=== PATIENT | male | born 1985 | race Caucasian/White ===

== ENCOUNTER 2017-01-28 19:11 | Emergency (ER) | payer BC ==
--- NOTE | 2017-01-28 19:36 | Emergency Department Record ---
History of Present Illness - General Chief complaint: Swelling of legs Stated complaint: RT ANKLE & KNEE SWELLED Time Seen by Provider: 01/28/17 19:35 Source: Patient Mode of Arrival: Ambulatory Limitations: No limitations - History of Present Illness Initial comments: The patient is here due to a 2 day hx of swelling to his ankles and knees. The R side is slightly worse than the L side. He denies any trauma, injury, calf or thigh pain, CP, SOB, [place] or fevers. The patient denies any hx of similar issues or problems. The patient also denies any AP, cough, or vomiting. MD Complaint: Extremity pain, Extremity swelling, Joint pain Onset/Timin -: Days(s) Location: Left, Right, Ankle, Knee History of Same: No Radiation: None Quality: Other Consistency: Other Improves with: Other Worsens with: Other Associated Symptoms: Denies other symptoms - Related Data Home Medications Medication Instructions Recorded Confirmed Last Taken Amlodipine Besylate [Norvasc] 10 mg PO DAILY 01/28/17 01/28/17 Unknown Hydrochlorothiazide [Hctz 25Mg] 25 mg PO DAILY 01/28/17 01/28/17 Unknown Metoprolol Succinate [Toprol Xl] 50 mg PO DAILY 01/28/17 01/28/17 Unknown Previous Rx's Medication Instructions Recorded Potassium Chloride [Klor-Con] 20 meq PO DAILY #10 tab.prt.sr 01/28/17 Prednisone [Prednisone 20Mg] 40 mg PO DAILY #8 tab 01/28/17 Allergies Allergy/AdvReac Type Severity Reaction Status Date / Time No Known Drug Allergies Allergy Verified 01/28/17 19:35 Travel Screening - Travel/Exposure Within Last 30 Days Have you traveled within the last 30 days?: No - Travel/Exposure Within Last Year Have you traveled outside the [place] in the last year?: No - Additonal Travel Details Have you been exposed to anyone with a communicable illness?: No Review of Systems Constitutional: Denies: Chills, Fever Eyes: Denies: Eye discharge ENT: Denies: Congestion Respiratory: Denies: Cough, Dyspnea Past Medical History - SOCIAL HISTORY Smoking Status: Never smoker Alcohol Use: Occassional Drug Use: None - RESPIRATORY Hx Respiratory Disorders: No - CARDIOVASCULAR Hx Cardio Disorders: No - NEURO Hx Neuro Disorders: No - GI Hx GI Disorders: No - Hx Genitourinary Disorders: No - ENDOCRINE Hx Endocrine Disorders: No - MUSCULOSKELETAL Hx Musculoskeletal Disorders: No - PSYCH Hx Psych Problems: No - HEMATOLOGY/ONCOLOGY Hx Hematology/Oncology Disorders: No Family Medical History Any Significant Family History?: Yes Family Hx Comment (NOT TO BE USED IN PLACE OF ITEMS BELOW): cancer Physical Exam - General General Appearance: Alert, Oriented x3, Cooperative, No acute distress - Head Head exam: Atraumatic, Normocephalic, Normal inspection - Eye Eye exam: Normal appearance, PERRL - Neck Neck exam: Normal inspection, Full ROM. negative: Tenderness - Respiratory Respiratory exam: Normal lung sounds bilaterally. negative: Respiratory distress - Cardiovascular Cardiovascular Exam: Regular rate, Normal rhythm, Normal heart sounds - GI/Abdominal GI/Abdominal exam: Soft, Normal bowel sounds. negative: Tenderness - Extremities Extremities exam: Full ROM, Joint swelling (There is very mild edema to the Knees and ankles R>L. There is no joint erythema, warmth or any significant tenderness.), Pedal edema (Trace mainly on the R.), Other (There is no thigh or calf tenderness or edema.). negative: Normal inspection, Calf tenderness Course Vital Signs 01/28/17 19:25 Temperature 98.6 F Pulse Rate [ 107 H Pulse Ox Probe] Respiratory 18 Rate Blood Pressure 183/121 [Left Arm] Pulse Ox 97 - Reevaluation(s) Reevaluation #1: The patient is doing very well at this time. He denies any pain or discomfort. I explained to him that his test results do not indicate a cause for the joint issues. I will place the patient on a short course or oral steroids and he will F/U with his PCP for recheck. 01/28/17 21:09 Medical Decision Making - Data Complexity MDM Data: Labs Ordered and/or Reviewed - Lab Data Result diagrams: 01/28/17 20:10 01/28/17 20:10 Disposition Disposition: Discharge Clinical Impression: Joint effusion of lower extremity Disposition: Home, Self-Care Condition: (1) Good Instructions: Leg Edema (ED) Additional Instructions: Please continue your regular medicines and take the potassium and Prednisone as directed. Please see your PCP for recheck in 3-5 days. Please return to the ER for any increased swelling, pain, fever. Prescriptions: Potassium Chloride [Klor-Con] 20 meq PO DAILY #10 tab.prt.sr Prednisone [Prednisone 20Mg] 40 mg PO DAILY #8 tab Forms: Patient Portal Access Time of Disposition: 21:13
[2017-01-28 20:27] LABS: BASO % 0.7 % (0-6); EOS % 1.5 % (0-6); HEMOGLOBIN 15.7 gm/dl (14.0-18.0); LYMPH % 11.1 % (16-45); MEAN CELL VOLUME 87.3 fl (81-97); MEAN CORPUSCULAR HEMOGLOBIN 31.2 pg (27-33); MEAN CORPUSCULAR HGB CONC 35.7 g/dl (32-36); MEAN PLATELET VOLUME 9.6 fl (7.4-10.4); MONO % 7.7 % (0-9); PLATELET COUNT 240 K/uL (130-400); RED BLOOD COUNT 5.04 M/uL (4.40-5.70); WHITE BLOOD COUNT W/O DIFF 7.6 K/uL (4.2-12.2)
[2017-01-28 20:28] LABS: URINE APPEARANCE CLEAR; URINE BILIRUBIN NEGATIVE (NEGATIVE); URINE BLOOD NEGATIVE (NEGATIVE); URINE COLOR YELLOW; URINE GLUCOSE (UA) NEGATIVE (NEGATIVE); URINE KETONE NEGATIVE (NEGATIVE); URINE LEUKOCYTE ESTERASE NEGATIVE (NEGATIVE); URINE NITRITE NEGATIVE (NEGATIVE); URINE PROTEIN NEGATIVE (NEGATIVE); URINE UROBILINOGEN 0.2 E.U./dL (0.20 - 1.00)
[2017-01-28 20:45] LABS: BLOOD UREA NITROGEN 10 mg/dL (9-20); C-REACTIVE PROTEIN 0.7 mg/dL (0.0-0.9); CREATININE 0.8 mg/dL (0.66-1.25); EST GLOMERULAR FILTRATION RATE > 60 ml/min; GLUCOSE,RANDOM 90 mg/dL (70-110)
[2017-01-28] MEDS ORDERED: POTASSIUM CHLORIDE 20 MEQ TABLET PO ONE (20:51)
[2017-01-28] MEDS ORDERED: PREDNISONE 20 MG TAB PO ONE (20:54)
[2017-01-28 21:06] LABS: ERYTHROCYTE SEDIMENTATION RATE 2 mm/hr (0-15)
== END 2017-01-28 21:22 | disposition home or self-care (01) ==
LOC: ER 19:11
DX: M25.461 Effusion, right knee (principal); M25.471 Effusion, right ankle
CPT/HCPCS: 99283; 99284; 84550; 85025; 85651; 86140; 80048; 81003; J7512

== ENCOUNTER 2018-03-18 14:28 | Emergency (ER) | payer BC ==
[2018-03-18] MEDS ORDERED: PROPARACAINE HCL OPTH 15ML BTL OPTH ONE (14:44)
--- NOTE | 2018-03-18 14:54 | Emergency Department Record ---
History of Present Illness - General Chief complaint: Eye Problem Stated complaint: LT EYE IRRATATION Time Seen by Provider: 03/18/18 14:44 Source: Patient Mode of Arrival: Ambulatory Limitations: No limitations - History of Present Illness Initial comments: The patient is here due to L eye irritation for one day. He was working under his car yesterday and felt like he got some rust in the L eye. The FB sensation then resolved and then later in the day he felt the eye become mildly irritated. This AM he noticed his L upper eyelid became mildly swollen. There is no blurred vision, FB sensation, eye pain or photophobia. chief complaint: Eye redness Onset/Timin -: Days(s) Onset Description: Sudden Location: Left eye Place: Home If Injury: Direct trauma, Other Eye Symptoms: Burning, Foreign body sensation, Itching, Pain, Redness Severity: Moderate Severity scale (1-10): 5 If Pain, Quality: Aching Consistency: Constant, Intermittent - Related Data Visual acuity (L) = 20/: 20 Visual acuity (R) = 20/: 20 Patient Tetanus UTD (within 5 yrs): Yes Home Medications Medication Instructions Recorded Confirmed Last Taken Losartan Potassium 50 mg PO DAILY 03/18/18 03/18/18 1 Day Ago ~03/17/18 Previous Rx's Medication Instructions Recorded Erythromycin Base [Erythromycin 1 apply AFFEYE QID #1 tube 03/18/18 OPTH Ointment] Allergies Allergy/AdvReac Type Severity Reaction Status Date / Time No Known Drug Allergies Allergy Verified 03/18/18 14:43 Travel Screening - Travel/Exposure Within Last 30 Days Have you traveled within the last 30 days?: No - Travel/Exposure Within Last Year Have you traveled outside the [place] in the last year?: No - Additonal Travel Details Have you been exposed to anyone with a communicable illness?: No - Travel Symptoms Symptom Screening: None Review of Systems Constitutional: Denies: Chills, Fever Eyes: Denies: Eye discharge ENT: Denies: Congestion Respiratory: Denies: Cough Past Medical History - SOCIAL HISTORY Smoking Status: Current some day smoker Alcohol Use: Occasional Drug Use Detail:: Marijuana - RESPIRATORY Hx Respiratory Disorders: No - CARDIOVASCULAR Hx Cardio Disorders: Yes Hx Hypertension: Yes - NEURO Hx Neuro Disorders: No - GI Hx GI Disorders: No - Hx Genitourinary Disorders: No - ENDOCRINE Hx Endocrine Disorders: No - MUSCULOSKELETAL Hx Musculoskeletal Disorders: No - PSYCH Hx Psych Problems: No - HEMATOLOGY/ONCOLOGY Hx Hematology/Oncology Disorders: No Family Medical History Any Significant Family History?: Yes Family Hx Comment (NOT TO BE USED IN PLACE OF ITEMS BELOW): cancer Physical Exam - General General Appearance: Alert, Oriented x3, Cooperative, No acute distress - Head Head exam: Atraumatic, Normocephalic, Normal inspection - Eye Eye exam: Normal appearance, PERRL, Conjunctival injection (Trace L eye.), EOMI , Other (There is no FB on Lid eversion and the cornea is clear on flourescein staining. The L upper eyelid is very mildly swollen. There was no FB visualized on Slit Lamp exam.). negative: Periorbital tenderness, Scleral icterus Course Vital Signs 03/18/18 14:35 Temperature 98.0 F Pulse Rate 67 Respiratory 16 Rate Blood Pressure 177/115 Pulse Ox 96 - Reevaluation(s) Reevaluation #1: I did explain to the patient that I do not see any FB on the cornea or any corneal injury. He is to use the Emycin ointment in his eye and see his verifying specialist if not better tomorrow. 03/18/18 14:58 Disposition Disposition: Discharge Clinical Impression: Eye injury, superficial Qualifiers: Encounter type: initial encounter Laterality: left Qualified Code(s): S05.8X2A - Other injuries of left eye and orbit, initial encounter Disposition: Home, Self-Care Condition: (2) Stable Instructions: Conjunctivitis (ED) Additional Instructions: Please use the Emycin eye ointment as directed and also use cool compresses on the L eye every hour while awake. Please see your eye doctor if not better tomorrow. Prescriptions: Erythromycin Base [Erythromycin OPTH Ointment] 1 apply AFFEYE QID #1 tube Forms: Patient Portal Access Time of Disposition: 15:02 Quality - Quality Measures Quality Measures: N/A - Blood Pressure Screening View Details: Yes Does Patient Have Any of the Following: Active Dx of HTN Blood Pressure Classification: Hypertensive Reading Systolic Measurement: 177 Diastolic Measurement: 115 Screening for High Blood Pressure: Patient Exclusion, Hx of HTN [G9744]
== END 2018-03-18 15:15 | disposition home or self-care (01) ==
LOC: ER 14:28
DX: S05.8X2A Other injuries of left eye and orbit, initial encounter (principal); I10 Essential (primary) hypertension; F17.210 Nicotine dependence, cigarettes, uncomplicated; Y92.009 Unspecified place in unspecified non-institutional (private) residence as the place of occurrence of the external cause
CPT/HCPCS: 99283

== ENCOUNTER 2019-02-18 20:53 | Emergency (ER) | payer BC ==
[2019-02-18] MEDS ORDERED: PROPARACAINE HCL OPTH 15ML BTL OPTH ONE ×2 (21:07)
[2019-02-18] MEDS ORDERED: OFLOXACIN 0.3% 5 ML OPTH SOLN OPTH ONE (21:07)
[2019-02-18] MEDS ORDERED: AZITHROMYCIN 500 MG TABLET PO ONE (21:23)
[2019-02-18] MEDS ORDERED: ERYTHROMYCIN OPTH OINT 3.5GM OPTH ONE (21:23)
--- NOTE | 2019-02-18 21:23 | Emergency Department Record ---
History of Present Illness - General Chief complaint: ENT Stated complaint: LT EYE IRRITATION,CHEST CONGESTION Time Seen by Provider: 02/18/19 21:06 Source: Patient Mode of Arrival: Ambulatory Limitations: No limitations - History of Present Illness Initial comments: 33 yo male presents with left eye irritation, drainage, and redness. The onset was today. His son had similar symptoms over the weekend that resolved. No vision changes. He does no wear glasses or contacts. No recent injury. 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 He has a productive cough with thick yellow green sputum as well. He has a remote injury of a chronic corneal abrasion that occasionally worsens if dry. chief complaint: Eye pain, Eye redness -: Days(s) (1) Onset Description: Gradual Location: Left eye Place: Home If Injury: None Eye Symptoms: Discharge, Redness Severity: Mild If Pain, Quality: Aching Consistency: Constant Context: Recent URI Associated Symptoms: Cough Treatments Prior to Arrival: None - Related Data Previous Rx's Medication Instructions Recorded Azithromycin [Zithromax] 250 mg PO DAILY #4 tablet 02/18/19 Allergies Allergy/AdvReac Type Severity Reaction Status Date / Time No Known Drug Allergies Allergy Verified 03/18/18 14:43 Review of Systems Constitutional: Denies: Chills, Fever, Malaise, Weakness Eyes: Reports: Eye discharge, Eye pain. Denies: Photophobia, Vision change ENT: Reports: Congestion Respiratory: Reports: Cough Cardiovascular: Denies: Chest pain, Syncope Endocrine: Denies: Fatigue Gastrointestinal: Denies: Abdominal pain, Diarrhea, Nausea, Vomiting Genitourinary: Denies: Dysuria, Frequency, Hematuria Musculoskeletal: Denies: Arthralgia, Back pain, Neck pain Skin: Denies: Bruising, Change in color, Rash Neurological: Denies: Headache Psychiatric: Denies: Anxiety Hematological/Lymphatic: Denies: Easy bleeding, Easy bruising Past Medical History - SOCIAL HISTORY Smoking Status: Current some day smoker Drug Use Detail:: Marijuana - RESPIRATORY Hx Respiratory Disorders: No - CARDIOVASCULAR Hx Cardio Disorders: Yes Hx Hypertension: Yes - NEURO Hx Neuro Disorders: No - GI Hx GI Disorders: No - Hx Genitourinary Disorders: No - ENDOCRINE Hx Endocrine Disorders: No - MUSCULOSKELETAL Hx Musculoskeletal Disorders: No - PSYCH Hx Psych Problems: No - HEMATOLOGY/ONCOLOGY Hx Hematology/Oncology Disorders: No Family Medical History Family Hx Comment (NOT TO BE USED IN PLACE OF ITEMS BELOW): cancer Physical Exam - General General Appearance: Alert, Oriented x3, Cooperative, No acute distress Limitations: No limitations - Head Head exam: Atraumatic - Eye Eye exam: PERRL, Conjunctival injection, EOMI. negative: Normal appearance, Nystagmus, Periorbital swelling, Periorbital tenderness Pupils: Normal accommodation, Other (No stain uptake, clear AC on slit lamp, no abrasions identified with staining and review with slit lamp, no corneal abnormalities). negative: Irregular, Unequal Visual acuity (L) = 20/: 20 - ENT ENT exam: Normal exam Ear exam: Normal external inspection Nasal Exam: Normal inspection Mouth exam: Normal external inspection Teeth exam: Normal inspection Throat exam: Normal inspection. negative: Tonsillar erythema, Tonsillomegaly, Tonsillar exudate - Neck Neck exam: Normal inspection - Respiratory Respiratory exam: Normal lung sounds bilaterally. negative: Respiratory distress, Rhonchi, Stridor, Wheezes - Cardiovascular Cardiovascular Exam: Regular rate, Normal rhythm, Normal heart sounds - Neurological Neurological exam: Alert, Normal gait, Oriented X3 - Psychiatric Psychiatric exam: Normal affect, Normal mood. negative: Agitated, Anxious - Skin Skin exam: Dry, Intact, Normal color, Warm Course Vital Signs 02/18/19 20:58 Temperature 98.9 F Pulse Rate [ 85 Pulse Ox Probe] Respiratory 20 Rate Blood Pressure 163/92 [Left Arm] Pulse Ox 97 - Reevaluation(s) Reevaluation #1: Slit lamp completed. No abnormal uptake, abrasions or lesions He was provided antibiotics He is to call his shroud line tier for close follow up this week if not quickly improving Disposition Disposition: Discharge Clinical Impression: Conjunctivitis, Bronchitis Disposition: Home, Self-Care Condition: (1) Good Instructions: Conjunctivitis (ED) Additional Instructions: Call your shroud line tier for the next available follow up appointment this week Return to the ER for a recheck if worse, any new concerns or questions Take the prescriptions provided as directed Use 2 drops every 4 hours in your left eye Use them one day beyond when the symptoms go away Review this ER visit and the tests performed with your family doctor Prescriptions: Azithromycin [Zithromax] 250 mg PO DAILY #4 tablet Forms: Patient Portal Access Time of Disposition: 21:25 Quality - Quality Measures Quality Measures: N/A - Blood Pressure Screening Does Patient Have Any of the Following: No Blood Pressure Classification: Pre-Hypertensive BP Reading Systolic Measurement: 158 Diastolic Measurement: 80 Screening for High Blood Pressure: < Pre-Hypertensive BP, F/U Documented > [ G8950] Pre-Hypertensive Follow-up Interventions: Referral to alternative/primary care provider.
== END 2019-02-18 21:36 | disposition home or self-care (01) ==
LOC: ER 20:53
DX: L50.8 Other urticaria (principal)
CPT/HCPCS: 99282